=== PATIENT | female | born 1985 | race Caucasian/White ===

== ENCOUNTER 2018-05-31 13:37 | Emergency (ER) | payer SELFPAY ==
--- NOTE | 2018-05-31 14:05 | ER Document Report ---
ED Medical Screen (RME) - General Chief Complaint: Chest Pain Stated Complaint: LEFT SHOULDER PAIN Time Seen by Provider: 05/31/18 14:02 Mode of Arrival: Medic Information source: Patient TRAVEL OUTSIDE OF THE [place] IN LAST 30 DAYS: No - HPI Patient complains to provider of: CP; L shoulder pain Onset: Other - pt. c/o CP and L shoulder pain for the past 3 days. Worse today. Given ASA by EMS - Related Data Allergies/Adverse Reactions: doxylamine succinate [From [facility]] Allergy (Severe, Verified 10/17/13 16:35) Difficulty breathing Past Medical History - Social History Family history: Reviewed & Not Pertinent Psychiatric Medical History: Reports: Hx Attention Deficit Hyperactivity Disorder, Hx Bipolar Disorder, Hx Depression Past Surgical History: Reports: Hx Abdominal Surgery - laparoscopy, Hx Orthopedic Surgery - KNEE X 4 - HAND X1 - Immunizations Immunizations up to date: No Hx Diphtheria, Pertussis, Tetanus Vaccination: No Physical Exam - Vital signs Vitals: Temp Pulse Resp BP Pulse Ox 97.9 F 63 16 129/68 H 100 05/31/18 13:44 05/31/18 13:44 05/31/18 13:44 05/31/18 13:44 05/31/18 13:44 Course - Vital Signs Vital signs: Temp Pulse Resp BP Pulse Ox 97.9 F 63 16 129/68 H 100 05/31/18 13:44 05/31/18 13:44 05/31/18 13:44 05/31/18 13:44 05/31/18 13:44
[2018-05-31 14:42] LABS: ABSOLUTE EOSINOPHILS # (AUTO) 0.1 10^3/uL (0.0-0.6); ABSOLUTE LYMPHOCYTES (AUTO) 2.4 10^3/uL (0.5-4.7); ABSOLUTE MONOCYTES (AUTO) 0.6 10^3/uL (0.1-1.4); ABSOLUTE NEUT (AUTO) 5.1 10^3/uL (1.7-8.2); BASOPHILS % (AUTO) 0.5 % (0-2); EOSINOPHILS % (AUTO) 0.7 % (0-6); HEMATOCRIT 37.6 % (36.0-47.0); HEMOGLOBIN 12.9 g/dL (12.0-15.5); MEAN CORPUSCULAR HEMOGLOBIN 30.7 pg (27.0-33.4); MEAN CORPUSCULAR HGB CONC 34.4 g/dL (32.0-36.0); MEAN CORPUSCULAR VOLUME 89 fl (80-97); MONOCYTES % (AUTO) 7.3 % (3-13); PLATELET COUNT 258 10^3/uL (150-450); RED BLOOD COUNT 4.21 10^6/uL (3.72-5.28); RED CELL DISTRIBUTION WIDTH 14.7 % (11.5-14.0); SEGMENTED NEUTROPHILS % (AUTO) 62.5 % (42-78); TOTAL CELLS COUNTED % (AUTO) 100 %; WHITE BLOOD COUNT 8.1 10^3/uL (4.0-10.5)
[2018-05-31 14:50] LABS: ALANINE AMINOTRANSFERASE 16 U/L (9-52); ALBUMIN 4.1 g/dL (3.5-5.0); ALKALINE PHOSPHATASE 74 U/L (38-126); ANION GAP 9 (5-19); ASPARTATE AMINO TRANSFERASE 30 U/L (14-36); BILIRUBIN,DIRECT 0.3 mg/dL (0.0-0.4); BILIRUBIN,TOTAL 0.4 mg/dL (0.2-1.3); BLOOD UREA NITROGEN 16 mg/dL (7-20); CALCIUM 9.2 mg/dL (8.4-10.2); CARBON DIOXIDE 28 mmol/L (22-30); CHLORIDE 101 mmol/L (98-107); CREATINE KINASE 166 U/L (30-135); GLUCOSE 89 mg/dL (75-110); POTASSIUM 4.3 mmol/L (3.6-5.0); SODIUM 138.4 mmol/L (137-145); TOTAL PROTEIN 6.8 g/dL (6.3-8.2)
[2018-05-31 15:00] LABS: CREATINE KINASE MB 0.88 ng/mL (<4.55)
[2018-05-31 15:02] LABS: TROPONIN I < 0.012 ng/mL
[2018-05-31] MEDS ORDERED: LIDOCAINE 5% (700 MG) TRANSDERMAL ADH..PATCH TP ONE (15:34)
[2018-05-31] MEDS ORDERED: KETOROLAC TROMETHAMINE INJ/PF 30 MG/1 ML SDV IV ONE (15:34)
[2018-05-31] MEDS ORDERED: TRAMADOL HCL 50 MG TABLET PO ONE (15:41)
--- NOTE | 2018-05-31 15:51 | ER Document Report ---
ED General - General Chief Complaint: Chest Pain Stated Complaint: LEFT SHOULDER PAIN Time Seen by Provider: 05/31/18 14:02 Mode of Arrival: Medic TRAVEL OUTSIDE OF THE [place] IN LAST 30 DAYS: No - HPI Patient complains to provider of: Left shoulder chest wall pain Notes: Patient presents today for 3-day history of left shoulder and chest wall pain. Patient denies any trauma. Patient states pain is ongoing and no relief with Tylenol or Motrin at home. Patient denies any injuries patient denies any new physical activity other than being left-handed and using her left arm to take care of her toddler at home. Denies any fever chills nausea vomiting diarrhea. Patient otherwise looks to be no obvious distress upon my evaluation. - Related Data Allergies/Adverse Reactions: doxylamine succinate [From [employer]] Allergy (Severe, Verified 05/31/18 14:07) Difficulty breathing Past Medical History - General Information source: Patient - Social History Smoking Status: Never Smoker Chew tobacco use (# tins/day): No Frequency of alcohol use: Occasional Drug Abuse: None Family History: Reviewed & Not Pertinent, DM Patient has suicidal ideation: No Patient has homicidal ideation: No Renal/ Medical History: Denies: Hx Peritoneal Dialysis Psychiatric Medical History: Reports: Hx Attention Deficit Hyperactivity Disorder, Hx Bipolar Disorder, Hx Depression Past Surgical History: Reports: Hx Abdominal Surgery - laparoscopy, Hx Section, Hx Cholecystectomy, Hx Orthopedic Surgery - KNEE X 4 - HAND X1 - Immunizations Immunizations up to date: No Hx Diphtheria, Pertussis, Tetanus Vaccination: No Review of Systems - Review of Systems Constitutional: No symptoms reported EENT: No symptoms reported Cardiovascular: Chest pain Respiratory: No symptoms reported Gastrointestinal: No symptoms reported Genitourinary: No symptoms reported Female Genitourinary: No symptoms reported Musculoskeletal: Other - Left shoulder Skin: No symptoms reported Hematologic/Lymphatic: No symptoms reported Neurological/Psychological: No symptoms reported -: Yes All other systems reviewed and negative Physical Exam - Vital signs Vitals: Temp Pulse Resp BP Pulse Ox 97.9 F 63 16 129/68 H 100 05/31/18 13:44 05/31/18 13:44 05/31/18 13:44 05/31/18 13:44 05/31/18 13:44 Interpretation: Normal - General General appearance: Appears well, Alert - HEENT Head: Normocephalic, Atraumatic Eyes: Normal Pupils: PERRL - Respiratory Respiratory status: No respiratory distress Chest status: Tender - Tenderness to palpation of the center of the chest reproduces patient's pain along with tenderness to palpation of the coracoid process the insertion point of the pectoralis muscles Breath sounds: Normal Chest palpation: Normal - Cardiovascular Rhythm: Regular Heart sounds: Normal auscultation Murmur: No - Abdominal Inspection: Normal Distension: No distension Bowel sounds: Normal Tenderness: Nontender Organomegaly: No organomegaly - Back Back: Normal, Nontender - Extremities General upper extremity: Normal inspection, Nontender, Normal color, Normal ROM , Normal temperature General lower extremity: Normal inspection, Tender, Normal color, Normal temperature, Normal weight bearing, Other - Patient has decreased range of motion of left shoulder unable to lift her arm above 90 degrees without pain. Patient does have tenderness to palpation of the supraspinatus muscle examination is consistent with a supraspinatus sprain or strain. No: Normal ROM , Cesilia's sign - Neurological Neuro grossly intact: Yes Cognition: Normal Orientation: AAOx4 [place] Coma Scale Eye Opening: Spontaneous Gregorio Coma Scale Verbal: Oriented Gregorio Coma Scale Motor: Obeys Commands Gregorio Coma Scale Total: 15 Speech: Normal Motor strength normal: LUE, RUE, LLE, RLE Sensory: Normal - Psychological Associated symptoms: Normal affect, Normal mood - Skin Skin Temperature: Warm Skin Moisture: Dry Skin Color: Normal Course - Re-evaluation Re-evalutation: 05/31/18 22:50 The patient has atypical chest pain as the patient's chest pain is not suggestive of pulmonary embolus, cardiac ischemia, aortic dissection, or other serious etiology. Given the extremely low risk of these diagnoses further testing and evaluation for these possibilities does not appear to be indicated at this time. The patient has been instructed to return if the symptoms worsen or change in any way. Examination consistent with pectoralis and supraspinatus strain. Patient was given Ultram for her pain recommended Tylenol Motrin therapy as well. Patient states understanding will be discharged home. - Vital Signs Vital signs: Temp Pulse Resp BP Pulse Ox 97.6 F 65 18 116/72 100 05/31/18 16:26 05/31/18 16:26 05/31/18 16:26 05/31/18 16:26 05/31/18 16:26 - Laboratory Result Diagrams: 05/31/18 14:14 05/31/18 14:14 Laboratory results interpreted by me: 05/31/18 05/31/18 14:14 14:14 RDW 14.7 H Creatine Kinase 166 H Discharge - Discharge Clinical Impression: Pectoralis muscle strain Qualifiers: Encounter type: initial encounter Qualified Code(s): S29.011A - Strain of muscle and tendon of front wall of thorax, initial encounter Strain of supraspinatus muscle Qualifiers: Encounter type: initial encounter Laterality: left Qualified Code(s): S46.812A - Strain of other muscles, fascia and tendons at shoulder and upper arm level, left arm, initial encounter Condition: Good Disposition: HOME, SELF-CARE Instructions: Chest Wall Pain ([facility]), Muscle Strain ([facility]), Oral Narcotic Medication ([facility]) Additional Instructions: Your x-rays were read by the radiologist as negative for any signs of acute fracture. Your laboratory studies today EKG x-rays do not show any signs of acute fracture. Your physical examination is consistent with supraspinatus strain pictorial muscle strain. I highly recommend she continue to take Tylenol Motrin for pain control. sHe may place ice and heat on the areas for pain control. May take the Ultram for severe pain. Return to the ER symptoms worsen this can take up to 2 weeks to totally heal. Prescriptions: Ibuprofen [Motrin 600 mg Tablet] 600 mg PO Q8HP PRN #21 tablet PRN Reason: Tramadol HCl [Ultram 50 mg Tablet] 50 mg PO ASDIR PRN #15 tablet PRN Reason: Forms: Return to Work
--- NOTE | 2018-05-31 16:05 | RADIOLOGY REPORT (SQ) ---
EXAM DESCRIPTION: SHOULDER LEFT 2 OR MORE VIEWS COMPLETED DATE/TIME: 05/31/2018 2:26 pm REASON FOR STUDY: CP COMPARISON: None. NUMBER OF VIEWS: Three views. TECHNIQUE: Internal rotation, external rotation, and Y view images acquired of the left shoulder. LIMITATIONS: None. FINDINGS: MINERALIZATION: Normal. BONES: No acute fracture or dislocation. No worrisome bone lesions. JOINTS: No dislocation. VISUALIZED LUNGS AND RIBS: No pneumothorax. No rib fracture. SOFT TISSUES: No radiopaque foreign body. OTHER: No other significant finding. IMPRESSION: NO RADIOGRAPHIC EVIDENCE OF ACUTE INJURY. TECHNICAL DOCUMENTATION: JOB ID: [id number] [place]-72 2010 [employer]- All Rights Reserved Reading location - IP/workstation name: [employer]
--- NOTE | 2018-05-31 16:06 | RADIOLOGY REPORT (SQ) ---
EXAM DESCRIPTION: CHEST 2 VIEWS COMPLETED DATE/TIME: 05/31/2018 2:26 pm REASON FOR STUDY: CP COMPARISON: 12/05/2010 TECHNIQUE: Frontal and lateral radiographic views of the chest acquired. NUMBER OF VIEWS: Two view. LIMITATIONS: None. FINDINGS: LUNGS AND PLEURA: No pneumothorax. No consolidation or pleural effusion. MEDIASTINUM AND HILAR STRUCTURES: Stable. HEART AND VASCULAR STRUCTURES: Stable. BONES: No acute findings. HARDWARE: None in the chest. OTHER: No other significant finding. IMPRESSION: NO ACUTE FINDINGS. TECHNICAL DOCUMENTATION: JOB ID: [id number] [place]-72 2010 [employer]- All Rights Reserved Reading location - IP/workstation name: [email or web address]
[2018-05-31 16:31] VITALS: BP 116/72
--- NOTE | 2018-05-31 22:02 | EKG REPORT ---
SEVERITY:- ABNORMAL ECG - SINUS RHYTHM MULTIPLE ATRIAL PREMATURE COMPLEXES : Confirmed by: Olesya Hollingsworth MD 31-May-2018 22:01:17
== END 2018-05-31 16:31 | disposition home or self-care (01) ==
LOC: ER 13:37
DX: S29.011A Strain of muscle and tendon of front wall of thorax, initial encounter (principal); S46.812A Strain of other muscles, fascia and tendons at shoulder and upper arm level, left arm, initial encounter; R07.89 Other chest pain; M25.512 Pain in left shoulder; X58.XXXA Exposure to other specified factors, initial encounter; Z88.8 Allergy status to other drugs, medicaments and biological substances
CPT/HCPCS: 93005; 99285; 96374; 36415; 82553; 82550; 83690; 84703; 85025; 80053; 84484; 71046; 73030; 93010; J1885

== ENCOUNTER 2018-07-10 08:52 | Emergency (ER) | payer SELFPAY ==
[2018-07-10] MEDS ORDERED: KETOROLAC TROMETHAMINE 60 MG/2 ML SDV IM ONE (09:42)
[2018-07-10] MEDS ORDERED: METHYLPREDNISOLONE ACETATE INJ 80 MG/1 ML VIAL IM ONE (09:42)
--- NOTE | 2018-07-10 09:43 | ER Document Report ---
ED Medical Screen (RME) - General Chief Complaint: Cough Stated Complaint: COUGHING UP BLOOD, LOST VOICE Time Seen by Provider: 07/10/18 09:41 Notes: 33 years old female presents today with 3-day history of sore throat and swelling of the upper part of the neck as well as difficulty in speaking due to pain. Feverish, no body aches and pain. No nausea vomiting. No other constitutional symptoms. On examination bilateral tonsillar enlargement with oropharynx being erythematous. Bilateral upper anterior large cervical lymphadenopathy. TRAVEL OUTSIDE OF THE [place] IN LAST 30 DAYS: No - Related Data Allergies/Adverse Reactions: doxylamine succinate [From [facility]] Allergy (Severe, Verified 05/31/18 14:07) Difficulty breathing Past Medical History - Social History Family history: Reviewed & Not Pertinent Renal/ Medical History: Denies: Hx Peritoneal Dialysis Psychiatric Medical History: Reports: Hx Attention Deficit Hyperactivity Disorder, Hx Bipolar Disorder, Hx Depression Past Surgical History: Reports: Hx Abdominal Surgery - laparoscopy, Hx Section, Hx Cholecystectomy, Hx Orthopedic Surgery - KNEE X 4 - HAND X1 - Immunizations Immunizations up to date: No Hx Diphtheria, Pertussis, Tetanus Vaccination: No Physical Exam - Vital signs Vitals: Temp Pulse Resp BP Pulse Ox 98.5 F 92 18 120/61 97 07/10/18 09:05 07/10/18 09:05 07/10/18 09:05 07/10/18 09:05 07/10/18 09:05 Course - Vital Signs Vital signs: Temp Pulse Resp BP Pulse Ox 98.5 F 92 18 120/61 97 07/10/18 09:05 07/10/18 09:05 07/10/18 09:05 07/10/18 09:05 07/10/18 09:05
[2018-07-10 10:34] LABS: ABSOLUTE BASOPHILS # (AUTO) 0.1 10^3/uL (0.0-0.2); ABSOLUTE LYMPHOCYTES (AUTO) 1.2 10^3/uL (0.5-4.7); ABSOLUTE NEUT (AUTO) 12.8 10^3/uL (1.7-8.2); BASOPHILS % (AUTO) 0.4 % (0-2); EOSINOPHILS % (AUTO) 0.3 % (0-6); HEMATOCRIT 39.3 % (36.0-47.0); HEMOGLOBIN 12.9 g/dL (12.0-15.5); LYMPHOCYTES % (AUTO) 7.7 % (13-45); MEAN CORPUSCULAR HEMOGLOBIN 29.3 pg (27.0-33.4); MEAN CORPUSCULAR HGB CONC 32.8 g/dL (32.0-36.0); MEAN CORPUSCULAR VOLUME 89 fl (80-97); MONOCYTES % (AUTO) 6.7 % (3-13); PLATELET COUNT 210 10^3/uL (150-450); RED CELL DISTRIBUTION WIDTH 14.3 % (11.5-14.0); SEGMENTED NEUTROPHILS % (AUTO) 84.9 % (42-78); TOTAL CELLS COUNTED % (AUTO) 100 %; WHITE BLOOD COUNT 15.1 10^3/uL (4.0-10.5)
[2018-07-10 11:00] LABS: ALANINE AMINOTRANSFERASE 16 U/L (9-52); ALBUMIN 3.9 g/dL (3.5-5.0); ALKALINE PHOSPHATASE 75 U/L (38-126); ANION GAP 14 (5-19); ASPARTATE AMINO TRANSFERASE 22 U/L (14-36); BILIRUBIN,DIRECT 0.2 mg/dL (0.0-0.4); BILIRUBIN,TOTAL 0.3 mg/dL (0.2-1.3); BLOOD UREA NITROGEN 9 mg/dL (7-20); CALCIUM 9.2 mg/dL (8.4-10.2); CARBON DIOXIDE 21 mmol/L (22-30); CHLORIDE 105 mmol/L (98-107); GLUCOSE 93 mg/dL (75-110); POTASSIUM 4.4 mmol/L (3.6-5.0); SODIUM 139.6 mmol/L (137-145); TOTAL PROTEIN 6.9 g/dL (6.3-8.2)
[2018-07-10] MEDS ORDERED: NORMAL SALINE 1000 ML 1,000 ML IV ONE (12:26)
--- NOTE | 2018-07-10 12:31 | ER Document Report ---
ED General - General Mode of Arrival: Ambulatory Information source: Patient TRAVEL OUTSIDE OF THE [place] IN LAST 30 DAYS: No <DIANA PERSAUD - Last Filed: 07/10/18 13:00> <MONSE SANCHEZ - Last Filed: 07/10/18 14:31> - General Chief Complaint: Cough Stated Complaint: COUGHING UP BLOOD, LOST VOICE Time Seen by Provider: 07/10/18 09:41 Notes: Patient is a 33 year old female with ADHD, bipolar disorder presents to the emergency department complaining of multiple symptoms including sore throat, headache, dizziness and body aches onset 3 days ago. Patient states she feels like her throat is swelling and she is having difficulty speaking due to the pain. Patient denies any cough, nausea or vomiting. (DIANA PERSAUD) - Related Data Allergies/Adverse Reactions: doxylamine succinate [From [employer]] Allergy (Severe, Verified 05/31/18 14:07) Difficulty breathing Past Medical History - General Information source: Patient - Social History Smoking Status: Never Smoker Chew tobacco use (# tins/day): No Frequency of alcohol use: None Drug Abuse: None Family History: Reviewed & Not Pertinent, DM Patient has suicidal ideation: No Patient has homicidal ideation: No Psychiatric Medical History: Reports: Hx Attention Deficit Hyperactivity Disorder, Hx Bipolar Disorder, Hx Depression Past Surgical History: Reports: Hx Abdominal Surgery - laparoscopy, Hx Section, Hx Cholecystectomy, Hx Orthopedic Surgery - KNEE X 4 - HAND X1 - Immunizations Immunizations up to date: No Hx Diphtheria, Pertussis, Tetanus Vaccination: No <DIANA PERSAUD - Last Filed: 07/10/18 13:00> Review of Systems - Review of Systems Constitutional: See HPI, Diaphoresis EENT: See HPI, Throat pain, Throat swelling Cardiovascular: See HPI, Dizziness Respiratory: No symptoms reported Gastrointestinal: No symptoms reported Genitourinary: No symptoms reported Musculoskeletal: No symptoms reported Skin: No symptoms reported Hematologic/Lymphatic: No symptoms reported Neurological/Psychological: See HPI, Headaches -: Yes All other systems reviewed and negative <DIANA PERSAUD - Last Filed: 07/10/18 13:00> Physical Exam <DIANA PERSAUD - Last Filed: 07/10/18 13:00> <MONSE SANCHEZ - Last Filed: 07/10/18 14:31> - Vital signs Vitals: Temp Pulse Resp BP Pulse Ox 98.5 F 92 18 120/61 97 07/10/18 09:05 07/10/18 09:05 07/10/18 09:05 07/10/18 09:05 07/10/18 09:05 - Notes Notes: GENERAL: Alert, interacts well. No acute distress. HEAD: Normocephalic, atraumatic. EYES: Pupils equal, round, and reactive to light. Extraocular movements intact. ENT: Oral mucosa moist, tongue midline. Posterior soft palate is swollen. Posterior oropharynx is swollen, bulging and erythematous with exudates. Unable to visualize tonsils with and without tongue depressor. Tongue is coated. No trismus. NECK: Full range of motion. Supple. Trachea midline.Anterior cervical lymphadenopathy bilaterally. LUNGS: Clear to auscultation bilaterally, no wheezes, rales, or rhonchi. No respiratory distress. HEART: Regular rate and rhythm. No murmurs, gallops, or rubs. ABDOMEN: Soft, non-tender. Non-distended. Bowel sounds present in all 4 quadrants. EXTREMITIES: Moves all 4 extremities spontaneously. NEUROLOGICAL: Alert and oriented x3. Normal speech. PSYCH: Normal affect, normal mood. SKIN: Warm, dry, normal turgor. No rashes or lesions noted. (DIANA PERSAUD) Course - Laboratory Result Diagrams: 07/10/18 10:15 07/10/18 10:15 <DIANA PERSAUD - Last Filed: 07/10/18 13:00> - Laboratory Result Diagrams: 07/10/18 10:15 07/10/18 10:15 - Diagnostic Test Radiology reviewed: Image reviewed, Reports reviewed - CT scan of the soft tissue neck with contrast does not show abscess formation. There is peritonsillar soft tissue swelling noted. <MONSE SANCHEZ - Last Filed: 07/10/18 14:31> - Vital Signs Vital signs: Temp Pulse Resp BP Pulse Ox 98.5 F 92 16 120/61 97 07/10/18 09:05 07/10/18 09:05 07/10/18 09:36 07/10/18 09:05 07/10/18 09:05 - Laboratory Laboratory results interpreted by me: 07/10/18 07/10/18 10:15 10:15 WBC 15.1 H RDW 14.3 H Seg Neutrophils % 84.9 H Lymphocytes % 7.7 L Absolute Neutrophils 12.8 H Carbon Dioxide 21 L Discharge <DIANA PERSAUD - Last Filed: 07/10/18 13:00> <MONSE SANCHEZ - Last Filed: 07/10/18 14:31> - Discharge Clinical Impression: Peritonsillar cellulitis, Strep sore throat Condition: Stable Disposition: HOME, SELF-CARE Additional Instructions: Roxane-Tonsillar Cellulits: You have roxane-tonsillar cellulitis. The CT scan does not show an abscess at this point. It may be a couple of days before we can sure it is just local tissue infection called cellulitis, and not an abscess developing. An antibiotic may prevent spread of the infection and a steroid medication may reduce the swelling. If you develop fever, chills, worsening pain, or increasing swelling in the area, call the doctor or return immediately. The major risk of a roxane- tonsillar abscess is that it may swell so much that it impinges on your airway and can lead to dangerous obstruction of your breathing. If that seems to be developing, you should seek immediate emergency re-evaluation and care. Strep Throat: Your sore throat is due to the streptococcus germ (strep throat). Strep throat usually makes you feel quite ill with fever and aches, headache, swollen sore throat, and tender bumps under the angles of the jaw. Strep throat requires antibiotic treatment. Although the sore throat may go away by itself, complications such as rheumatic fever, kidney disease, or throat abscess can occur. We usually prescribe antibiotics by mouth. Be sure to take the medicine until it's gone. If you stop early, the strep may come back. If you are vomiting, are severely ill, or can't remember to take pills, we can give you an antibiotic shot. Take acetaminophen or ibuprofen for pain and fever. Sip frequent clear liquids, or use popsicles or ice chips. Anesthetic sprays or lozenges may help. Make sure the air in the room is not too dry. Avoid using decongestants or antihistamines. Call the doctor if there is no improvement in three days, or if you have difficulty breathing, increasing throat pain, high fever, rash, or frequent vomiting. Take the medications as prescribed. Drink plenty of cool clear liquids. Get plenty of rest. Try to limit talking as much as possible. Return to the emergency room for recheck if not improving. RETURN TO THE EMERGENCY ROOM IF ANY NEW OR WORSENING SYMPTOMS. Prescriptions: Cephalexin Monohydrate [Keflex 500 mg Capsule] 500 mg PO TID #30 capsule Prednisone [Deltasone 10 mg Tablet] 10 mg PO ASDIR PRN #21 tablet PRN Reason: Forms: Return to Work Scribe Attestation: 07/10/18 14:19 I personally performed the services described in the documentation, reviewed and edited the documentation which was dictated to the scribe in my presence, and it accurately records my words and actions. (MONSE SANCHEZ) Scribe Documentation - Scribe Written by Abdiel:: Abdiel Cook, 07/10/2018 12:31 acting as scribe for :: Ruben <DIANA PERSAUD - Last Filed: 07/10/18 13:00>
[2018-07-10] MEDS ORDERED: CEFTRIAXONE 1 GM/D5W RTU 1 GM/50 ML RTUPB IV ONE (13:45)
--- NOTE | 2018-07-10 13:45 | RADIOLOGY REPORT (SQ) ---
EXAM DESCRIPTION: CT SOFT TISSUE NECK WITH COMPLETED DATE/TIME: 07/10/2018 1:12 pm REASON FOR STUDY: Peritonsillar abscess COMPARISON: None. TECHNIQUE: Post IV contrasted scanning from skull base through lung apices with review of bone, soft tissue and lung windows. Reconstructed coronal and sagittal MPR images reviewed. All images stored on PACS. All CT scanners at this facility use dose modulation, iterative reconstruction, and/or weight based d osing when appropriate to reduce radiation dose to as low as reasonably achievable (ALARA). [facility]: Dose Right [facility]: CareDose [facility]: Dose Right [facility]: Teradose 4D [facility]: [place] CONTRAST TYPE AND DOSE: contrast/concentration: Isovue 350.00 mg/ml; Total Contrast Delivered: 70.1 ml; Total Saline Delivered: 20.0 ml RENAL FUNCTION: GFR > 60. RADIATION DOSE: . LIMITATIONS: None. FINDINGS: SKULL BASE: Intact. MAJOR SALIVARY GLANDS: No solid or cystic masses. No inflammatory changes. LYMPHADENOPATHY: No adenopathy. MUCOSAL MASSES OR ASYMMETRY: Fullness in the para tonsillar soft tissues and posterior nasopharynx. Small gas bubble to right of midline nasopharynx of unlikely clinical significance. No associated in flammation. Patent airway. LARYNX/CORDS: No abnormal findings. VASCULAR STRUCTURES: The major vessels are patent. LUNG APICES: Clear. BONES: Intact. THYROID: Normal size. No masses. PARANASAL SINUSES: Clear. OTHER: No other significant finding. IMPRESSION: No abscess identified. TECHNICAL DOCUMENTATION: JOB ID: [id number] Quality ID # [id number]: Final reports with documentation of one or more dose reduction techniques (e.g., Au tomated exposure control, adjustment of the mA and/or kV according to patient size, use of iterative reconstruction technique) 2010 [employer]- All Rights Reserved Reading location - IP/workstation name: [email or web address]
[2018-07-10 14:42] VITALS: BP 108/57
== END 2018-07-10 15:00 | disposition home or self-care (01) ==
LOC: ER 08:52
DX: J02.0 Streptococcal pharyngitis (principal); R51 Headache; R42 Dizziness and giddiness; Z88.8 Allergy status to other drugs, medicaments and biological substances
CPT/HCPCS: 99284; 96372; 96361; 96365; 36415; 87880; 85025; 86308; 80053; 70491; J1885; J1040; J7030; J0696

== ENCOUNTER 2018-08-06 07:53 | Emergency (ER) | payer SELFPAY ==
[2018-08-06 07:58] VITALS: BP 124/72
[2018-08-06] MEDS ORDERED: DEXAMETHASONE SOD PHOS INJ 10 MG/1 ML VIAL IM ONE (08:22)
--- NOTE | 2018-08-06 08:26 | ER Document Report ---
HPI - HPI Time Seen by Provider: 08/06/18 08:03 Pain Level: 2 Notes: Patient is a 33-year-old female who presents to the emergency department complaining of sore throat times 3 days. Patient states that she was diagnosed with strep and tonsillitis about a month ago. Patient states that she is still able to eat and drink without any difficulties. She has not had any trouble swallowing aside from discomfort. She is urinating normally. She has no other concerns or complaints aside from associated nasal congestion and discharge. Denies any headache, fever, neck pain, changes in vision/speech/mentation/hearing, chest pain, palpitations, syncope, cough, shortness of breath, wheeze, dyspnea, abdominal pain, nausea/vomiting/diarrhea, urinary retention, dysuria, hematuria, or rash. - ROS Systems Reviewed and Negative: Yes All other systems reviewed and negative - CONSTITUTIONAL Constitutional: DENIES: Fever, Chills - EENT EENT: REPORTS: Sore Throat. DENIES: Ear Pain, Eye problems - NEURO Neurology: DENIES: Headache, Weakness, Vision blurred, Dizzinesss / Vertigo - CARDIOVASCULAR Cardiovascular: DENIES: Chest pain - RESPIRATORY Respiratory: REPORTS: Coughing - yellow. DENIES: Trouble Breathing - GASTROINTESTINAL Gastrointestinal: DENIES: Abdominal Pain, Black / Bloody Stools - URINARY Urinary: DENIES: Dysuria, Urgency, Frequency - REPRODUCTIVE Reproductive: DENIES: : - MUSCULOSKELETAL Musculoskeletal: DENIES: Extremity pain Past Medical History - Social History Smoking Status: Former Smoker Chew tobacco use (# tins/day): No Frequency of alcohol use: None Drug Abuse: None Family History: Reviewed & Not Pertinent, DM Patient has suicidal ideation: No Patient has homicidal ideation: No Renal/ Medical History: Denies: Hx Peritoneal Dialysis Psychiatric Medical History: Reports: Hx Attention Deficit Hyperactivity Disorder, Hx Bipolar Disorder, Hx Depression Past Surgical History: Reports: Hx Abdominal Surgery - laparoscopy, Hx Section, Hx Cholecystectomy, Hx Orthopedic Surgery - KNEE X 4 - HAND X1 - Immunizations Immunizations up to date: No Hx Diphtheria, Pertussis, Tetanus Vaccination: No Vertical Provider Document - CONSTITUTIONAL Agree With Documented VS: Yes Notes: PHYSICAL EXAMINATION: GENERAL: Well-appearing, well-nourished and in no acute distress. A&Ox4. Answers questions appropriately. Moves comfortably w/o notable distress HEAD: Atraumatic, normocephalic. EYES: Pupils equal round and reactive to light, extraocular movements intact, sclera anicteric, conjunctiva are normal. ENT: EAC clear b/l. TM's intact b/l without erythema, fluid, or perforation. Nares patent and with clear discharge. oropharynx mild erythema without exudates. 1-2+ tonsilar hypertrophy with mild erythema no exudate. No palatine shift. Uvula midline. No tongue protrusion. No drooling, hoarseness, or airway compromise. Moist mucous membranes. No sinus tenderness. NECK: Normal range of motion, supple with ant. cerv chain lymphadenopathy. No rigidity/meningismus. LUNGS: Breath sounds clear to auscultation bilaterally and equal. No wheezes rales or rhonchi. No retractions HEART: Regular rate and rhythm without murmurs, rubs, gallops. ABDOMEN: Soft, nontender, nondistended abdomen. No guarding, no rebound. No masses appreciated. Normal bowel sounds present. No CVA tenderness bilaterally. No hepatosplenomegaly. NEUROLOGICAL: Normal speech, normal gait. Normal sensory, motor exams PSYCH: Normal mood, normal affect. SKIN: Warm, Dry, normal turgor, no rashes or lesions noted. - INFECTION CONTROL TRAVEL OUTSIDE OF THE [place] IN LAST 30 DAYS: No Course - Re-evaluation Re-evalutation: 08/06/18 08:35 Patient is an afebrile, well-hydrated, 33-year-old female who presents to the ED with acute strep pharyngitis. Vitals are currently acceptable without any significant tachycardia, tachypnea, or hypoxia. PE is otherwise unremarkable. Decadron was given IM today. Rapid strep was positive. No further labs or imaging warranted at this time. Patient is nontoxic-appearing and is able to tolerate p.o. without difficulty. Low suspicion for any meningitis, sepsis, peritonsillar/pharyngeal abscess, respiratory compromise, Damion's, or other emergent systemic condition at this time. Patient is aware this condition can change from initial presentation and she needs to monitor symptoms closely. I will send her home with a prescription for penicillin. Conservative measures otherwise for symptoms. Recheck with your PCM in 2-3 days. Return to the ED with any worsening/concerning symptoms otherwise as reviewed in discharge. Patient is in agreement. - Vital Signs Vital signs: Temp Pulse Resp BP Pulse Ox 97.6 F 67 14 124/72 99 08/06/18 07:57 08/06/18 07:57 08/06/18 07:57 08/06/18 07:57 08/06/18 07:57 Discharge - Discharge Clinical Impression: Acute streptococcal pharyngitis Condition: Stable Disposition: HOME, SELF-CARE Instructions: Penicillin V K ([facility]), Strep Throat ([facility]) Additional Instructions: Maintain adequate fluid intake Take meds as directed Salt water gargles, throat sprays, mouthwash rinse, peroxide gargles tylenol/ibuprofen as needed New toothbrush tomorrow evening over the counter cold medication as needed for symptoms F/u: with your PCM in 3-5 days for a recheck Consider consult with ENT for ongoing/worsening symptoms Return to the ED with any fever, worsening pain, chest pain, neck pain/stiffness, shortness of breath, cough, drooling, trouble swallowing/breathing, abdominal pain, n/v/d, rash, or worsening/concerning symptoms otherwise. Prescriptions: Penicillin V Potassium [Penicillin Vk 500 mg Tablet] 500 mg PO TID #30 tablet Referrals: SIENA MELARA DO [ASSOCIATE] - Follow up as needed
== END 2018-08-06 08:57 | disposition home or self-care (01) ==
LOC: ER 07:53
DX: J02.0 Streptococcal pharyngitis (principal); R09.81 Nasal congestion; J34.89 Other specified disorders of nose and nasal sinuses; Z87.891 Personal history of nicotine dependence
CPT/HCPCS: 99283; 96372; 87880; J1100

== ENCOUNTER 2018-08-27 14:50 | Emergency (ER) | payer SELFPAY ==
--- NOTE | 2018-08-27 15:32 | ER Document Report ---
ED Medical Screen (RME) - General Chief Complaint: Vaginal Pain Stated Complaint: VAGINAL ITCHING,DISCHARGE Time Seen by Provider: 08/27/18 15:25 Mode of Arrival: Ambulatory Information source: Patient Notes: 33-year-old female presents the emergency department with complaints of suprapubic abdominal pain, dysuria, increased urgency, increased frequency, abnormal vaginal discharge, vaginal itching, vaginal pain. Patient states that her last menstrual period was a week ago. She is climbed to have taken, "everything [id number]" for her symptoms without relief. She denies any fever, chills, nausea, vomiting, diarrhea, constipation. I have greeted and performed a rapid initial assessment of this patient. A comprehensive ED assessment and evaluation of the patient, analysis of test results and completion of the medical decision making process will be conducted by additional ED providers. PHYSICAL EXAMINATION: GENERAL: Well-appearing, well-nourished and in no acute distress. HEAD: Atraumatic, normocephalic. EYES: Pupils equal round extraocular movements intact, conjunctiva are normal. ENT: Nares patent NECK: Normal range of motion LUNGS: No respiratory distress Musculoskeletal: Normal range of motion NEUROLOGICAL: Normal speech, normal gait. PSYCH: Normal mood, normal affect. SKIN: Warm, Dry, normal turgor, no rashes or lesions noted. TRAVEL OUTSIDE OF THE [place] IN LAST 30 DAYS: No - Related Data Allergies/Adverse Reactions: doxylamine succinate [From [employer]] Allergy (Severe, Verified 08/27/18 14:59) Difficulty breathing Past Medical History - Social History Chew tobacco use (# tins/day): No Frequency of alcohol use: Occasional Drug Abuse: None Family history: Reviewed & Not Pertinent Renal/ Medical History: Denies: Hx Peritoneal Dialysis Psychiatric Medical History: Reports: Hx Attention Deficit Hyperactivity Disorder, Hx Bipolar Disorder, Hx Depression Past Surgical History: Reports: Hx Abdominal Surgery - laparoscopy, Hx Section, Hx Cholecystectomy, Hx Orthopedic Surgery - KNEE X 4 - HAND X1 - Immunizations Immunizations up to date: No Hx Diphtheria, Pertussis, Tetanus Vaccination: No Physical Exam - Vital signs Vitals: Temp Pulse Resp BP Pulse Ox 97.6 F 82 20 116/69 99 08/27/18 15:10 08/27/18 15:10 08/27/18 15:10 08/27/18 15:10 08/27/18 15:10 Course - Vital Signs Vital signs: Temp Pulse Resp BP Pulse Ox 97.6 F 82 20 116/69 99 08/27/18 15:10 08/27/18 15:10 08/27/18 15:10 08/27/18 15:10 08/27/18 15:10
[2018-08-27 16:04] LABS: APPEARANCE,URINE SLIGHTLY-CLOUDY; BILIRUBIN,URINE NEGATIVE (NEGATIVE); COLOR,URINE AMBER; GLUCOSE, URINE NEGATIVE (NEGATIVE); KETONES,URINE NEGATIVE (NEGATIVE); LEUKOCYTE ESTERASE,URINE TRACE (NEGATIVE); NITRITE,URINE POSITIVE (NEGATIVE); PROTEIN,URINE NEGATIVE (NEGATIVE); URINE SPECIFIC GRAVITY 1.023
[2018-08-27] MEDS ORDERED: PHENAZOPYRIDINE HCL 100 MG TABLET PO ONE (16:24)
[2018-08-27] MEDS ORDERED: SULFAMETHOXAZOLE/TRIMETHOPRIM 800-160 MG TABLET PO ONE (16:24)
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
[2018-08-27] MEDS ORDERED: HYDROCODONE/ACETAMINOPHEN 5-325 MG TABLET PO ONE (16:25)
[2018-08-27 17:48] LABS: BACTERIA (WET MOUNT) 3+ BACTERIA SEEN; EPITHELIALS (WET MOUNT) 4+ EPITHELIALS SEEN; T.VAGINALIS (WET MOUNT) NO TRICHOMONAS SEEN; WBCS (WET MOUNT) 2+ WBCS SEEN; YEAST (WET MOUNT) NO YEAST SEEN
[2018-08-27] MEDS ORDERED: AZITHROMYCIN 250 MG TABLET PO ONE (18:22)
[2018-08-27] MEDS ORDERED: METRONIDAZOLE 500 MG TABLET PO ONE (18:22)
[2018-08-27] MEDS ORDERED: LIDOCAINE 1% INJ-PF (10 MG/ML) 30 ML SDV IM ONE (18:22)
[2018-08-27] MEDS ORDERED: CEFTRIAXONE INJ 250 MG VIAL IM ONE (18:22)
[2018-08-27 18:59] VITALS: BP 113/57
[2018-08-27 19:13] LABS: CHLAM PCR NOT DETECTED (NOT DETECT); GON PCR NOT DETECTED (NOT DETECT)
== END 2018-08-27 19:04 | disposition home or self-care (01) ==
LOC: ER 14:50
DX: N76.0 Acute vaginitis (principal); B96.89 Other specified bacterial agents as the cause of diseases classified elsewhere; N39.0 Urinary tract infection, site not specified; R31.9 Hematuria, unspecified; F17.200 Nicotine dependence, unspecified, uncomplicated; Z88.8 Allergy status to other drugs, medicaments and biological substances; Z20.2 Contact with and (suspected) exposure to infections with a predominantly sexual mode of transmission
CPT/HCPCS: 99283; 96372; 87210; 81025; 81001; 87491; 87591; J3490 ×2; J0696

== ENCOUNTER 2018-12-18 13:20 | Emergency (ER) | payer MEDICAID ==
[2018-12-18 13:37] VITALS: BP 124/71
== END 2018-12-18 13:58 | disposition left against medical advice (07) ==
LOC: ER 13:20
DX: Z53.21 Procedure and treatment not carried out due to patient leaving prior to being seen by health care provider (principal); R51 Headache; R42 Dizziness and giddiness

== ENCOUNTER 2019-01-05 07:16 | Emergency (ER) | payer MEDICAID ==
[2019-01-05 07:20] VITALS: BP 121/69
[2019-01-05] MEDS ORDERED: DEXAMETHASONE SOD PHOS INJ 10 MG/1 ML VIAL IM ONE (08:38)
--- NOTE | 2019-01-05 08:42 | ER Document Report ---
HPI - HPI Time Seen by Provider: 01/05/19 08:13 Pain Level: 4 Notes: Patient is a 33-year-old female presented to the emergency department chief complaint of sore throat and right ear pain. Patient reports all symptoms started yesterday. She also reports mild cough and congestion. She denies any fevers. Patient reports her and her son have had recurrent strep throat over the last several months. She states that she feels like she has strep throat. - EENT EENT: REPORTS: Sore Throat - REPRODUCTIVE Reproductive: DENIES: : Past Medical History - General Information source: Patient - Social History Smoking Status: Former Smoker Chew tobacco use (# tins/day): No Frequency of alcohol use: None Drug Abuse: None Family History: Reviewed & Not Pertinent, DM Patient has suicidal ideation: No Patient has homicidal ideation: No Renal/ Medical History: Denies: Hx Peritoneal Dialysis Psychiatric Medical History: Reports: Hx Attention Deficit Hyperactivity Disorder, Hx Bipolar Disorder, Hx Depression Past Surgical History: Reports: Hx Abdominal Surgery - laparoscopy, Hx Section, Hx Cholecystectomy, Hx Orthopedic Surgery - KNEE X 4 - HAND X1 - Immunizations Immunizations up to date: No Hx Diphtheria, Pertussis, Tetanus Vaccination: No Vertical Provider Document - CONSTITUTIONAL Notes: PHYSICAL EXAMINATION: GENERAL: Well-appearing, well-nourished and in no acute distress. HEAD: Atraumatic, normocephalic. EYES: Pupils equal round extraocular movements intact, conjunctiva are normal. ENT: Nares patent, oropharynx mildly erythematous without tonsillar swelling or exudates. Right TM erythematous and bulging. Left TM unremarkable. NECK: Bilateral cervical lymphadenopathy. LUNGS: No respiratory distress, lung sounds clear and equal bilaterally. Musculoskeletal: Normal range of motion NEUROLOGICAL: Normal speech, normal gait. PSYCH: Normal mood, normal affect. SKIN: Warm, Dry, normal turgor, no rashes or lesions noted. - INFECTION CONTROL TRAVEL OUTSIDE OF THE [place] IN LAST 30 DAYS: No Course - Re-evaluation Re-evalutation: Patient appears well, nontoxic and vital signs are within normal limits. Rapid strep is negative. Will start patient on Augmentin for otitis media. Throat culture pending. Information was given for ENT as patient reports recurrent strep over the last several months. ED return precautions were discussed and patient verbalized understanding and agreement with plan. - Vital Signs Vital signs: Temp Pulse Resp BP Pulse Ox 98.4 F 87 18 121/69 96 01/05/19 07:19 01/05/19 07:19 01/05/19 07:19 01/05/19 07:19 01/05/19 07:19 Discharge - Discharge Clinical Impression: Sore throat Otitis media Qualifiers: Otitis media type: unspecified Chronicity: acute Qualified Code(s): H66.90 - Otitis media, unspecified, unspecified ear Condition: Stable Disposition: HOME, SELF-CARE Additional Instructions: SORE THROAT: Sore throats may be caused by viruses, bacteria, or fungi. Most are due to a virus, and must get better on their own. Bacterial sore throats, particularly those due to "strep," need treatment with antibiotics. If an antibiotic is prescribed, be sure to take the medication for a full 10 days. Failure to take the antibiotic can result in complications such as rheumatic fever. Sometimes, an injection of antibiotics is given instead of pills or liquid. This single "shot" is equal in effectiveness to the oral medication. To relieve symptoms, take acetaminophen for pain. Sip clear liquids frequently, or eat popsicles or ice chips. Anesthetic sprays or lozenges may help. Make sure the air in the room is not too dry. Avoid using decongestants or antihistamines. Call the doctor if there is no improvement in two days, or if you have difficulty breathing, increasing throat pain, high fever, rash, or frequent vomiting. STEROID MEDICATION: You have been given a medicine of the cortisone/steroid class. This medication is used to control inflammation or allergy. It is usually only given for a short period of time, until the acute process subsides. There are usually no side effects from short-term use of cortisone-like medications. Some persons feel an increased sense of well-being and are not sleepy at bedtime. Long-term use of cortisone medications is best avoided, unless required for a severe condition. If your condition does not remit, or relapses after the course of corticosteroid medication, you should consult your physician. OTITIS MEDIA: You have a middle ear infection (otitis media). This is usually a complication of a cold or sore throat. The middle ear cavity becomes filled with infection. Pressure and stretching of the ear drum cause pain. Antibiotics are required. A 10 day course is usually prescribed. A decongestant may be recommended if you have a "runny nose." You may need anesthetic drops or other pain medication. A follow-up exam may be recommended to make sure the infection has completely cleared. If the ear begins to drain, it means the ear drum has ruptured. This will usually heal spontaneously. However, it means you should keep the ear dry until re-examined by a doctor. Call the physician or return for examination at once if there is severe headache, stiff neck, confusion, increasing fever, or dizziness. You should improve significantly within two days. If you're not better, call the doctor. Augmentin Augmentin is a mixture of amoxicillin and clavulanate. Amoxicillin is a mem luis of the penicillin family. It covers the germs likely to cause ear, bronchial, and urinary infections better than plain penicillin. The addition of clavulanate allows it to cover staph infections of the skin, as well as resistant cases of ear and sinus infections. Your physician has chosen Augmentin for you because of the special nature of your situation. Augmentin is best taken with meals. Nausea after taking the medication is rare, but can occur. Diarrhea can occur, particularly in small children. Vaginal yeast infections, and oral thrush in infants are also common. Contact your physician if these problems occur. Allergy to penicillins is common. If you have had an allergic reaction to any drug of the penicillin family, you should never take any other penicillin. Notify your doctor at once if you develop hives, shortness of breath, swelling, or faintness. FOLLOW-UP CARE: If you have been referred to a physician for follow-up care, call the physician s office for an appointment as you were instructed or within the next two days. If you experience worsening or a significant change in your symptoms, notify the physician immediately or return to the Emergency Department at any time for re-evaluation. Your rapid strep test today was negative. Someone will call you in the next 48 hours if there is any abnormality on the throat culture. Please take antibiotics as directed for your ear. Please continue to take [id number] throat lozenges or throat spray. Tylenol or ibuprofen would be helpful as well for your sore throat pain as well as any fevers he may develop. Follow-up with your primary care physician and consider following up with an ENT since you date that you have been having recurrent strep. Return to the emergency department with worsening symptoms, difficulty swallowing or any other symptoms that are concerning to you. Prescriptions: Amox Tr/Potassium Clavulanate [Augmentin 875-125 mg Tablet] 1 tab PO BID #20 tablet Forms: Return to Work Referrals: SIENA MELARA DO [ASSOCIATE] - Follow up as needed
== END 2019-01-05 08:59 | disposition home or self-care (01) ==
LOC: ER 07:16
DX: J02.9 Acute pharyngitis, unspecified (principal); H66.90 Otitis media, unspecified, unspecified ear; H92.01 Otalgia, right ear; R05 Cough; R09.81 Nasal congestion; Z87.891 Personal history of nicotine dependence
CPT/HCPCS: 99283; 96372; 87070; 87880; 87077; J1100

== ENCOUNTER 2019-02-25 13:48 | Emergency (ER) | payer MEDICAID ==
[2019-02-25 15:26] LABS: ABSOLUTE BASOPHILS # (AUTO) 0.1 10^3/uL (0.0-0.2); ABSOLUTE LYMPHOCYTES (AUTO) 2.4 10^3/uL (0.5-4.7); ABSOLUTE MONOCYTES (AUTO) 0.5 10^3/uL (0.1-1.4); ABSOLUTE NEUT (AUTO) 5.6 10^3/uL (1.7-8.2); BASOPHILS % (AUTO) 0.8 % (0-2); EOSINOPHILS % (AUTO) 0.5 % (0-6); HEMATOCRIT 39.2 % (36.0-47.0); LYMPHOCYTES % (AUTO) 27.5 % (13-45); MEAN CORPUSCULAR HEMOGLOBIN 29.9 pg (27.0-33.4); MEAN CORPUSCULAR HGB CONC 33.2 g/dL (32.0-36.0); MEAN CORPUSCULAR VOLUME 90 fl (80-97); MONOCYTES % (AUTO) 6.1 % (3-13); PLATELET COUNT 243 10^3/uL (150-450); RED BLOOD COUNT 4.35 10^6/uL (3.72-5.28); RED CELL DISTRIBUTION WIDTH 14.4 % (11.5-14.0); SEGMENTED NEUTROPHILS % (AUTO) 65.1 % (42-78); TOTAL CELLS COUNTED % (AUTO) 100 %; WHITE BLOOD COUNT 8.7 10^3/uL (4.0-10.5)
--- NOTE | 2019-02-25 15:29 | ER Document Report ---
ED Medical Screen (RME) - General Chief Complaint: Anxiety Stated Complaint: VAGINAL BLEEDING Time Seen by Provider: 02/25/19 14:58 Mode of Arrival: Ambulatory Information source: Patient Notes: Patient is a 33-year-old female G2, P1 presenting with chief complaint of vaginal bleeding. Patient reports she has 6 weeks 1 day , states bleeding started this morning and was dark brown. Patient reports bleeding has now stopped. She also reports low abdominal cramping and low back pain. She reports mild nausea but denies any vomiting. Exam: Tenderness to palpation lower abdomen, no acute distress noted. I have greeted and performed a rapid initial assessment of this patient. A comprehensive ED assessment and evaluation of the patient, analysis of test results and completion of the medical decision making process will be conducted by additional ED providers. I have specifically instructed the patient or family members with the patient to immediately return to any nursing staff should anything change in the patient's condition or with their chief complaint. This medical record was dictated with voice recognizing software. There may be grammatical, syntax errors that are unintended. TRAVEL OUTSIDE OF THE [place] IN LAST 30 DAYS: No - Related Data Allergies/Adverse Reactions: doxylamine succinate [From [employer]] Allergy (Severe, Verified 02/25/19 13:49) Difficulty breathing Past Medical History - Social History Family history: Reviewed & Not Pertinent Renal/ Medical History: Denies: Hx Peritoneal Dialysis Psychiatric Medical History: Reports: Hx Attention Deficit Hyperactivity Disorder, Hx Bipolar Disorder, Hx Depression Past Surgical History: Reports: Hx Abdominal Surgery - laparoscopy, Hx Section, Hx Cholecystectomy, Hx Orthopedic Surgery - KNEE X 4 - HAND X1 - Immunizations Immunizations up to date: No Hx Diphtheria, Pertussis, Tetanus Vaccination: No Physical Exam - Vital signs Vitals: Temp Pulse Resp BP Pulse Ox 98.0 F 73 24 H 111/64 100 02/25/19 13:57 02/25/19 13:57 02/25/19 13:57 02/25/19 13:57 02/25/19 13:57 Course - Vital Signs Vital signs: Temp Pulse Resp BP Pulse Ox 98.0 F 73 24 H 111/64 100 02/25/19 13:57 02/25/19 13:57 02/25/19 13:57 02/25/19 13:57 02/25/19 13:57 - Laboratory Result Diagrams: 02/25/19 15:10 Laboratory results interpreted by me: 02/25/19 15:10 RDW 14.4 H
[2019-02-25 15:38] LABS: AMORPHOUS SEDIMENT,URINE TRACE /HPF; APPEARANCE,URINE CLOUDY; BILIRUBIN,URINE NEGATIVE (NEGATIVE); GLUCOSE, URINE NEGATIVE (NEGATIVE); KETONES,URINE TRACE mg/dL (NEGATIVE); LEUKOCYTE ESTERASE,URINE NEGATIVE (NEGATIVE); NITRITE,URINE NEGATIVE (NEGATIVE); PROTEIN,URINE NEGATIVE (NEGATIVE); URINE SPECIFIC GRAVITY 1.011; UROBILINOGEN,URINE NEGATIVE mg/dL (<2.0)
[2019-02-25 15:41] LABS: COLOR,URINE YELLOW
--- NOTE | 2019-02-25 16:13 | ER Document Report ---
ED General - General Chief Complaint: Anxiety Stated Complaint: VAGINAL BLEEDING Time Seen by Provider: 02/25/19 14:58 [facility] - Follow up in 1 week Mode of Arrival: Ambulatory Information source: Patient Notes: This 33-year-old female presents today with complaints of vaginal bleed and . Reports that she is approximately 6 weeks . G2, P1. Patient reports that she noticed some brown blood early this morning. Also complains of some abdominal cramping and low back pain. She reports she took 2 test at home which both were positive and also followed up with the health department last week. Patient denies trauma, denies pain with void, denies fever vomiting diarrhea but reports some nausea mild. Patient also reports that she has a history of depression during . She denies suicidal ideations. Patient reports she is had to call out from work for the past 3 days. She works from home. TRAVEL OUTSIDE OF THE [place] IN LAST 30 DAYS: No - HPI Onset: This morning Quality of pain: Cramping Severity: Mild Associated symptoms: Nausea Exacerbated by: Denies Relieved by: Denies Similar symptoms previously: No Recently seen / treated by doctor: No - Related Data Allergies/Adverse Reactions: doxylamine succinate [From [employer]] Allergy (Severe, Verified 02/25/19 13:49) Difficulty breathing Past Medical History - General Information source: Patient - Social History Smoking Status: Unknown if Ever Smoked Cigarette use (# per day): No Frequency of alcohol use: None Drug Abuse: None Occupation: works from home Lives with: Family Family History: Reviewed & Not Pertinent, DM Patient has suicidal ideation: No Patient has homicidal ideation: No Renal/ Medical History: Denies: Hx Peritoneal Dialysis Psychiatric Medical History: Reports: Hx Attention Deficit Hyperactivity Disorder, Hx Depression Past Surgical History: Reports: Hx Abdominal Surgery - laparoscopy, Hx Section, Hx Cholecystectomy, Hx Orthopedic Surgery - KNEE X 4 - HAND X1 - Immunizations Immunizations up to date: No Hx Diphtheria, Pertussis, Tetanus Vaccination: No Review of Systems - Review of Systems Notes: Review HPI for review of systems., All other systems negative Physical Exam - Vital signs Vitals: Temp Pulse Resp BP Pulse Ox 98.0 F 73 24 H 111/64 100 02/25/19 13:57 02/25/19 13:57 02/25/19 13:57 02/25/19 13:57 02/25/19 13:57 - Notes Notes: PHYSICAL EXAMINATION: GENERAL: Well-appearing and in no acute distress HEAD: Atraumatic, normocephalic. EYES: Pupils equal round extraocular movements intact, sclera anicteric, conjunctiva are normal. ENT: nares patent, . Moist mucous membranes. NECK: Normal range of motion, supple without lymphadenopathy LUNGS: CTAB and equal. No wheezes rales or rhonchi. HEART: Regular rate and rhythm without murmurs ABDOMEN: Soft, no tenderness. No guarding, no rebound BACK:Denies pain, no CVA tenderness EXTREMITIES: Normal range of motion, NEUROLOGICAL: Cranial nerves grossly intact. PSYCH: Normal mood, normal affect. SKIN: Warm, Dry, normal turgor, no rashes or lesions noted Course - Re-evaluation Re-evalutation: 02/25/19 18:37 This 33-year-old male that presents to the emergency department with reports she had an episode of vaginal bleeding that was dark brown this morning. Patient reports she is . She took 2 home tests which were both positive and was confirmed by the health department. Patient denies trauma. Reports some abdominal cramping and low back pain. Reports she is G2, P1. Obstetrics Ultrasound 02/25/19 14:59 IMPRESSION: LIVING INTRAUTERINE . EGA 6 WEEKS 2 DAYS. Trimester of : First trimester - 0 to 13 weeks. 02/25/19 15:10 Blood Type O POSITIVE 02/25/19 15:10 MCV 90 fl (80-97) 02/25/19 15:10 MCH 29.9 pg (27.0-33.4) 02/25/19 15:10 MCHC 33.2 g/dL (32.0-36.0) 02/25/19 15:10 RDW 14.4 % (11.5-14.0) H 02/25/19 15:10 Seg Neutrophils % 65.1 % (42-78) 02/25/19 15:10 Lymphocytes % 27.5 % (13-45) 02/25/19 15:10 Monocytes % 6.1 % (3-13) 02/25/19 15:10 Eosinophils % 0.5 % (0-6) 02/25/19 15:10 Basophils % 0.8 % (0-2) 02/25/19 15:10 Absolute Neutrophils 5.6 10^3/uL (1.7-8.2) 02/25/19 15:10 Absolute Lymphocytes 2.4 10^3/uL (0.5-4.7) 02/25/19 15:10 Absolute Monocytes 0.5 10^3/uL (0.1-1.4) 02/25/19 15:10 Absolute Eosinophils 0.0 10^3/uL (0.0-0.6) 02/25/19 15:10 Absolute Basophils 0.1 10^3/uL (0.0-0.2) 02/25/19 15:10 Urine Color YELLOW 02/25/19 15:10 Urine Appearance CLOUDY 02/25/19 15:10 Urine pH 6.0 (5.0-9.0) 02/25/19 15:10 Ur Specific [place] 1.011 02/25/19 15:10 Urine Protein NEGATIVE mg/dL (NEGATIVE) 02/25/19 15:10 Urine Glucose (UA) NEGATIVE mg/dL (NEGATIVE) 02/25/19 15:10 Urine Ketones TRACE mg/dL (NEGATIVE) H 02/25/19 15:10 Urine Blood NEGATIVE (NEGATIVE) 02/25/19 15:10 Urine Nitrite NEGATIVE (NEGATIVE) 02/25/19 15:10 Ur Leukocyte Esterase NEGATIVE (NEGATIVE) 02/25/19 15:10 Urine WBC (Auto) 10 /HPF 02/25/19 15:10 Urine RBC (Auto) 1 /HPF 02/25/19 15:10 02/25/19 18:38 Labs unremarkable Rh+ no need for RhoGam. Ultrasound showed 6-week 1 day intrauterine . Subchorionic bleed. Patient informed of results. Informed of follow-up repeat hCG on February 27. Patient was instructed to return emergency department for increased pain bleeding concerns. She verbalized understand all instructions. - Vital Signs Vital signs: Temp Pulse Resp BP Pulse Ox 98.7 F 76 18 114/78 99 02/25/19 17:53 02/25/19 17:53 02/25/19 17:53 02/25/19 17:53 02/25/19 17:53 - Laboratory Result Diagrams: 02/25/19 15:10 Laboratory results interpreted by me: 02/25/19 02/25/19 02/25/19 15:10 15:10 15:10 RDW 14.4 H Beta HCG, Quant 88217.00 H Urine Ketones TRACE H - Diagnostic Test Radiology reviewed: Image reviewed, Reports reviewed Discharge - Discharge Clinical Impression: , Vaginal bleeding during Condition: Stable Disposition: HOME, SELF-CARE Instructions: Bleeding During Early (OM), Ob-[employer] Doctors, [facility] [place] Additional Instructions: *You have been evaluated for abdominal pain, vaginal bleeding during *The ultrasound showed a 6week 1 day intrauterine with small s ubchorionic bleed *Follow up in 2 days, February 27 for a repeat HCG. You may call [phone] for results Saturday - Saturday 8-4[place] [id number] *Follow up with your PHYSICAL CHEMIST or the health department within one week for recheck and repeat Ultrasound as indicated *Avoid sexual intercourse until follow up *Return to ED for worsening condition, changes, needs, increased abdominal pain, increased vaginal bleeding Forms: Follow-Up Laboratory Testing Referrals: [facility] [Provider Group] - Follow up in 1 week
--- NOTE | 2019-02-25 16:25 | RADIOLOGY REPORT (SQ) ---
EXAM DESCRIPTION: U/S OB TRANSVAGINAL W/O DOP COMPLETED DATE/TIME: 02/25/2019 4:12 pm REASON FOR STUDY: 6 weeks preg, vag bleed, abd pain COMPARISON: None. TECHNIQUE: Transvaginal static and realtime grayscale images acquired of the pelvis. Additional marli cted spectral and color Doppler images recorded. All images stored on PACs. bHCG: Pending CLINICAL DATES: 6 weeks 1 day LIMITATIONS: None. FINDINGS: FETUS: Single Living intrauterine . ULTRASOUND EGA: 6 weeks 2 days. ULTRASOUND ESMER: 10/19/2019 EFW: Not applicable less than 20 weeks. CRL: 4.9 mm FHR: bladder is noted. SURVEY: Too early to assess. AMNIOTIC FLUID: Too early to assess. PLACENTA: Not yet developed due to early gestation. SUBCHORIONIC BLEED: Yes SIZE OF BLEED: 1.0 x 1.3 x 0.9 cm. UTERUS: No masses. No anomalies. CERVICAL LENGTH: 2.4 cm. Closed. RIGHT ADNEXA: Normal ovary with normal vascular flow. No adnexal free fluid. No adnexal masses. LEFT ADNEXA: 2.0 cm complex left ovarian cyst. No adnexal free fluid. No adnexal masses. FREE FLUID: None. OTHER: No other significant finding. IMPRESSION: LIVING INTRAUTERINE . EGA 6 WEEKS 2 DAYS. Trimester of : First trimester - 0 to 13 weeks. TECHNICAL DOCUMENTATION: JOB ID: [id number] [employer]- All Rights Reserved Reading location - IP/workstation name: [email or web address]
[2019-02-25 17:54] VITALS: BP 114/78
== END 2019-02-25 17:54 | disposition home or self-care (01) ==
LOC: ER 13:48
DX: O20.8 Other hemorrhage in early pregnancy (principal); O99.89 Other specified diseases and conditions complicating pregnancy, childbirth and the puerperium; M54.5 Low back pain; O26.891 Other specified pregnancy related conditions, first trimester; R10.9 Unspecified abdominal pain; R11.0 Nausea; Z88.8 Allergy status to other drugs, medicaments and biological substances; Z3A.01 Less than 8 weeks gestation of pregnancy; Z90.49 Acquired absence of other specified parts of digestive tract
CPT/HCPCS: 36415; 76817; 81001; 84702; 85025; 86900; 86901; 99284

== ENCOUNTER 2019-06-06 23:32 | Outpatient (CLI) | payer MEDICAID ==
[2019-06-07 00:50] LABS: APPEARANCE,URINE SLIGHTLY-CLOUDY; BILIRUBIN,URINE NEGATIVE (NEGATIVE); COLOR,URINE STRAW; GLUCOSE, URINE NEGATIVE (NEGATIVE); KETONES,URINE NEGATIVE (NEGATIVE); LEUKOCYTE ESTERASE,URINE NEGATIVE (NEGATIVE); NITRITE,URINE NEGATIVE (NEGATIVE); PROTEIN,URINE NEGATIVE (NEGATIVE); URINE SPECIFIC GRAVITY 1.001; UROBILINOGEN,URINE NEGATIVE mg/dL (<2.0)
[2019-06-07 01:09] LABS: URINE AMPHETAMINES SCREEN NEGATIVE; URINE BARBITURATES SCREEN NEGATIVE; URINE BENZODIAZEPINES SCREEN NEGATIVE; URINE COCAINE SCREEN NEGATIVE; URINE MARIJUANA (THC) SCREEN NEGATIVE; URINE METHADONE SCREEN NEGATIVE; URINE PHENCYCLIDINE SCREEN NEGATIVE
== END 2019-06-07 01:19 | disposition home or self-care (01) ==
LOC: LC 23:32
PROVIDERS: ATTEND Obstetrics & Gynecology
PROC: 4A1HXCZ Monitoring of Products of Conception, Cardiac Rate, External Approach (ICD-10-PCS; principal; 2019-06-06)
DX: O47.02 False labor before 37 completed weeks of gestation, second trimester (principal); Z3A.20 20 weeks gestation of pregnancy
CPT/HCPCS: 80307; 81001

== ENCOUNTER 2019-07-17 23:05 | Outpatient (CLI) | payer MEDICAID ==
[2019-07-18 00:27] LABS: APPEARANCE,URINE CLOUDY; BILIRUBIN,URINE NEGATIVE (NEGATIVE); COLOR,URINE YELLOW; GLUCOSE, URINE NEGATIVE (NEGATIVE); KETONES,URINE NEGATIVE (NEGATIVE); LEUKOCYTE ESTERASE,URINE NEGATIVE (NEGATIVE); NITRITE,URINE NEGATIVE (NEGATIVE); PROTEIN,URINE NEGATIVE (NEGATIVE); URINE SPECIFIC GRAVITY 1.006; UROBILINOGEN,URINE NEGATIVE mg/dL (<2.0)
[2019-07-18 00:50] LABS: URINE AMPHETAMINES SCREEN NEGATIVE; URINE BARBITURATES SCREEN NEGATIVE; URINE BENZODIAZEPINES SCREEN NEGATIVE; URINE COCAINE SCREEN NEGATIVE; URINE MARIJUANA (THC) SCREEN NEGATIVE; URINE METHADONE SCREEN NEGATIVE; URINE PHENCYCLIDINE SCREEN NEGATIVE
[2019-07-18 01:23] LABS: ABSOLUTE EOSINOPHILS # (AUTO) 0.1 10^3/uL (0.0-0.6); ABSOLUTE LYMPHOCYTES (AUTO) 2.3 10^3/uL (0.5-4.7); ABSOLUTE MONOCYTES (AUTO) 0.7 10^3/uL (0.1-1.4); ABSOLUTE NEUT (AUTO) 6.2 10^3/uL (1.7-8.2); BASOPHILS % (AUTO) 0.4 % (0-2); EOSINOPHILS % (AUTO) 0.9 % (0-6); HEMATOCRIT 29.1 % (36.0-47.0); LYMPHOCYTES % (AUTO) 25.1 % (13-45); MEAN CORPUSCULAR HEMOGLOBIN 31.3 pg (27.0-33.4); MEAN CORPUSCULAR HGB CONC 34.3 g/dL (32.0-36.0); MEAN CORPUSCULAR VOLUME 91 fl (80-97); MONOCYTES % (AUTO) 7.8 % (3-13); PLATELET COUNT 192 10^3/uL (150-450); RED BLOOD COUNT 3.19 10^6/uL (3.72-5.28); RED CELL DISTRIBUTION WIDTH 13.7 % (11.5-14.0); SEGMENTED NEUTROPHILS % (AUTO) 65.8 % (42-78); TOTAL CELLS COUNTED % (AUTO) 100 %; WHITE BLOOD COUNT 9.3 10^3/uL (4.0-10.5)
[2019-07-18] MEDS ORDERED: MAG HYDROX/AL HYDROX/SIMETH SUSP 30 ML UDCUP PO ONE (02:31)
[2019-07-18] MEDS ORDERED: ACETAMINOPHEN 325 MG TABLET PO ONE (02:31)
[2019-07-18] MEDS ORDERED: ACETAMINOPHEN 325 MG TABLET ONE (02:40)
[2019-07-18] MEDS ORDERED: MAG HYDROX/AL HYDROX/SIMETH SUSP 30 ML UDCUP ONE (02:40)
--- NOTE | 2019-07-18 02:45 | RADIOLOGY REPORT (SQ) ---
EXAM DESCRIPTION: US LIMITED COMPLETED DATE/TME: 07/18/2019 00:00 CLINICAL HISTORY: 34 years, Female, well being COMPARISON: 02/25/2019 TECHNIQUE: Transabdominal technique. Grayscale and Doppler images of the fetus LIMITATIONS: None. FINDINGS: The maternal cervix is closed and measures 3.4 cm in length. The heart rate measures 144 bpm. The placenta is anterior. No evidence of placenta previa or abruption. The MARCIO is within normal limits and measures 14.7 cm. Biometry: BPD: 6.66 cm = 26 weeks 6 days. HC: 25.0 cm = 27 weeks 1 days. AC: 22.86 cm = 27 weeks 2 days. FL: 5.11 cm = 27 weeks 3 days. Ratios (%): FL/AC: 22.4 (20-24). FL/BPD: 76.7 (71-87). HC/AC: 1.09 (1.04-1.22). CI: 82.9 (70-86). EFW = 1047 grams. 56%ile by [place]. (Please note that an incorrect LMP could make the percentile value inaccurate.) Clinical: LMP: 01/13/2019. MA: 26 weeks four days. ESMER: 10/20/2019. Ultrasound: MA: 27 weeks one day. ESMER: 10/16/2019. IMPRESSION: Single live intrauterine , as described above. copyright 2010 [employer]- All Rights Reserved
== END 2019-07-18 03:22 | disposition home or self-care (01) ==
LOC: LC 23:05
PROVIDERS: ATTEND Student in an Organized Health Care Education/Training Program
PROC: 4A1HXCZ Monitoring of Products of Conception, Cardiac Rate, External Approach (ICD-10-PCS; principal; 2019-07-17)
DX: O47.02 False labor before 37 completed weeks of gestation, second trimester (principal); Z3A.26 26 weeks gestation of pregnancy
CPT/HCPCS: 59025; 36415; 85025; 81001; 80307; 76815; J3490 ×2

== ENCOUNTER 2019-07-30 17:37 | Outpatient (CLI) | payer MEDICAID | END 2019-07-30 18:15 | disposition home or self-care (01) | LOC: LC 17:37 | PROVIDERS: ATTEND Obstetrics & Gynecology Gynecology | DX: O47.02 False labor before 37 completed weeks of gestation, second trimester (principal); Z3A.28 28 weeks gestation of pregnancy ==

== ENCOUNTER 2019-08-26 12:09 | Outpatient (CLI) | payer MEDICAID ==
[2019-08-26 13:02] LABS: APPEARANCE,URINE SLIGHTLY-CLOUDY; BILIRUBIN,URINE NEGATIVE (NEGATIVE); COLOR,URINE YELLOW; GLUCOSE, URINE NEGATIVE (NEGATIVE); KETONES,URINE NEGATIVE (NEGATIVE); LEUKOCYTE ESTERASE,URINE TRACE (NEGATIVE); NITRITE,URINE NEGATIVE (NEGATIVE); PROTEIN,URINE NEGATIVE (NEGATIVE); URINE SPECIFIC GRAVITY 1.006; UROBILINOGEN,URINE NEGATIVE mg/dL (<2.0)
[2019-08-26 13:13] LABS: URINE AMPHETAMINES SCREEN NEGATIVE; URINE BARBITURATES SCREEN NEGATIVE; URINE BENZODIAZEPINES SCREEN NEGATIVE; URINE COCAINE SCREEN NEGATIVE; URINE MARIJUANA (THC) SCREEN NEGATIVE; URINE METHADONE SCREEN NEGATIVE; URINE PHENCYCLIDINE SCREEN NEGATIVE
[2019-08-26 14:00] LABS: ABSOLUTE EOSINOPHILS # (AUTO) 0.1 10^3/uL (0.0-0.6); ABSOLUTE LYMPHOCYTES (AUTO) 1.7 10^3/uL (0.5-4.7); ABSOLUTE MONOCYTES (AUTO) 0.6 10^3/uL (0.1-1.4); ABSOLUTE NEUT (AUTO) 7.3 10^3/uL (1.7-8.2); BASOPHILS % (AUTO) 0.3 % (0-2); EOSINOPHILS % (AUTO) 0.6 % (0-6); HEMATOCRIT 29.1 % (36.0-47.0); LYMPHOCYTES % (AUTO) 17.5 % (13-45); MEAN CORPUSCULAR HGB CONC 34.5 g/dL (32.0-36.0); MEAN CORPUSCULAR VOLUME 90 fl (80-97); MONOCYTES % (AUTO) 6.4 % (3-13); PLATELET COUNT 242 10^3/uL (150-450); RED BLOOD COUNT 3.24 10^6/uL (3.72-5.28); SEGMENTED NEUTROPHILS % (AUTO) 75.2 % (42-78); TOTAL CELLS COUNTED % (AUTO) 100 %; WHITE BLOOD COUNT 9.6 10^3/uL (4.0-10.5)
[2019-08-26 14:20] LABS: ALKALINE PHOSPHATASE 93 U/L (38-126); ANION GAP 6 (5-19); ASPARTATE AMINO TRANSFERASE 25 U/L (14-36); BILIRUBIN,TOTAL 0.2 mg/dL (0.2-1.3); BLOOD UREA NITROGEN 7 mg/dL (7-20); CARBON DIOXIDE 24 mmol/L (22-30); CHLORIDE 106 mmol/L (98-107); GLUCOSE 86 mg/dL (75-110); POTASSIUM 4.1 mmol/L (3.6-5.0); TOTAL PROTEIN 5.7 g/dL (6.3-8.2)
[2019-08-26 14:22] LABS: ALCOHOL < 10 mg/dL (NONE DETECTED)
--- NOTE | 2019-08-26 14:43 | Non Stress Test Report ---
Non Stress Test Datetime Report Generated by CPN: 08/26/2019 14:43 DEMOGRAPHIC EGA NST: 32.1 INDICATION Indication for Study (NST) Other: false labor MONITORING Time on Monitor: 08/26/2019 12:14 Time off Monitor: 08/26/2019 14:11 NST Duration: 117 NST INTERVENTIONS NST Interventions: PO Hydration; Reposition Patient BABY A: [id number] BABY A Movement : Present Contraction Frequency : 0 FHR Baseline : 130 Accelerations : 15X15 Decelerations : None Variability : Moderate 6-25bpm NST Review: Meets Criteria for Reactive NST NST Review and Verified By : Audra Felix RN NST Results: Reactive NST REPORT Report Trigger: Send Report
== END 2019-08-26 14:38 | disposition home or self-care (01) ==
LOC: LC 12:09
PROVIDERS: ATTEND Obstetrics & Gynecology
PROC: 4A1HXCZ Monitoring of Products of Conception, Cardiac Rate, External Approach (ICD-10-PCS; principal; 2019-08-26)
DX: O47.03 False labor before 37 completed weeks of gestation, third trimester (principal); Z3A.32 32 weeks gestation of pregnancy
CPT/HCPCS: 36415; 59025; 80053; 80307; 81001; 85025; 87086

== ENCOUNTER 2019-10-04 09:53 | Outpatient (CLI) | payer MEDICAID ==
[2019-10-04 10:42] LABS: APPEARANCE,URINE CLOUDY; BILIRUBIN,URINE NEGATIVE (NEGATIVE); COLOR,URINE YELLOW; GLUCOSE, URINE NEGATIVE (NEGATIVE); KETONES,URINE NEGATIVE (NEGATIVE); LEUKOCYTE ESTERASE,URINE NEGATIVE (NEGATIVE); NITRITE,URINE NEGATIVE (NEGATIVE); PROTEIN,URINE NEGATIVE (NEGATIVE); URINE SPECIFIC GRAVITY 1.006; UROBILINOGEN,URINE NEGATIVE mg/dL (<2.0)
[2019-10-04] MEDS ORDERED: RINGERS SOLUTION,LACTATED 1,000 ML IV PRN (10:52)
[2019-10-04] MEDS ORDERED: MORPHINE SULFATE 10 MG/ML INJ IV ONE (10:53)
[2019-10-04] MEDS ORDERED: PROMETHAZINE HCL INJ 25 MG/1 ML VIAL IV ONE (10:54)
[2019-10-04 11:02] LABS: URINE AMPHETAMINES SCREEN NEGATIVE; URINE BARBITURATES SCREEN NEGATIVE; URINE BENZODIAZEPINES SCREEN NEGATIVE; URINE COCAINE SCREEN NEGATIVE; URINE MARIJUANA (THC) SCREEN NEGATIVE; URINE METHADONE SCREEN NEGATIVE; URINE PHENCYCLIDINE SCREEN NEGATIVE
[2019-10-04] MEDS ORDERED: MORPHINE SULFATE 10 MG/ML INJ ONE (11:10)
[2019-10-04] MEDS ORDERED: PROMETHAZINE HCL INJ 25 MG/1 ML VIAL ONE (11:10)
--- NOTE | 2019-10-04 15:12 | Non Stress Test Report ---
Non Stress Test Datetime Report Generated by CPN: 10/04/2019 15:12 DEMOGRAPHIC EGA NST: 37.5 INDICATION Indication for Study (NST) Other: IUP @ 37.5, no cervical dialation MONITORING Monitor Explained: Monitor Explained; Test Explained; Patient Verbalized Understanding Time on Monitor: 10/04/2019 10:14 Time off Monitor: 10/04/2019 14:53 NST Duration: 279 NST INTERVENTIONS NST Interventions: PO Hydration; Reposition Patient Physician Notified NST: Dr Godwin BABY A: [id number] BABY A Movement : Present Contraction Frequency : 2-9 FHR Baseline : 135 Accelerations : 15X15 Decelerations : None Variability : Moderate 6-25bpm NST Review: Meets Criteria for Reactive NST NST Review and Verified By : Spencer MedranogwickADRIEN NST Results: Reactive NST COMMENTS NST Comments: MD on unit NST REPORT Report Trigger: Send Report
== END 2019-10-04 15:04 | disposition home or self-care (01) ==
LOC: LC 09:53
PROVIDERS: ATTEND Obstetrics & Gynecology
PROC: 4A1HXCZ Monitoring of Products of Conception, Cardiac Rate, External Approach (ICD-10-PCS; principal; 2019-10-04)
DX: O47.1 False labor at or after 37 completed weeks of gestation (principal); Z3A.37 37 weeks gestation of pregnancy
CPT/HCPCS: 59025; 81005; 80307; J2270; J2550

== ENCOUNTER 2019-10-16 04:43 | Inpatient (IN) | payer MEDICAID ==
[2019-10-09 09:16] LABS: APPEARANCE,URINE CLOUDY; BILIRUBIN,URINE NEGATIVE (NEGATIVE); COLOR,URINE YELLOW; GLUCOSE, URINE NEGATIVE (NEGATIVE); KETONES,URINE NEGATIVE (NEGATIVE); LEUKOCYTE ESTERASE,URINE NEGATIVE (NEGATIVE); NITRITE,URINE NEGATIVE (NEGATIVE); PROTEIN,URINE NEGATIVE (NEGATIVE); URINE SPECIFIC GRAVITY 1.009; UROBILINOGEN,URINE NEGATIVE mg/dL (<2.0)
[2019-10-09 09:42] LABS: URINE AMPHETAMINES SCREEN NEGATIVE; URINE BARBITURATES SCREEN NEGATIVE; URINE BENZODIAZEPINES SCREEN NEGATIVE; URINE COCAINE SCREEN NEGATIVE; URINE MARIJUANA (THC) SCREEN NEGATIVE; URINE METHADONE SCREEN NEGATIVE; URINE PHENCYCLIDINE SCREEN NEGATIVE
[2019-10-09 10:24] LABS: ABSOLUTE LYMPHOCYTES (AUTO) 1.4 10^3/uL (0.5-4.7); ABSOLUTE MONOCYTES (AUTO) 0.5 10^3/uL (0.1-1.4); ABSOLUTE NEUT (AUTO) 6.1 10^3/uL (1.7-8.2); BASOPHILS % (AUTO) 0.2 % (0-2); EOSINOPHILS % (AUTO) 0.5 % (0-6); HEMATOCRIT 30.4 % (36.0-47.0); HEMOGLOBIN 10.6 g/dL (12.0-15.5); LYMPHOCYTES % (AUTO) 17.7 % (13-45); MEAN CORPUSCULAR HEMOGLOBIN 30.9 pg (27.0-33.4); MEAN CORPUSCULAR HGB CONC 34.8 g/dL (32.0-36.0); MEAN CORPUSCULAR VOLUME 89 fl (80-97); PLATELET COUNT 193 10^3/uL (150-450); RED BLOOD COUNT 3.41 10^6/uL (3.72-5.28); RED CELL DISTRIBUTION WIDTH 13.8 % (11.5-14.0); SEGMENTED NEUTROPHILS % (AUTO) 75.6 % (42-78); TOTAL CELLS COUNTED % (AUTO) 100 %; WHITE BLOOD COUNT 8.1 10^3/uL (4.0-10.5)
--- NOTE | 2019-10-09 18:13 | EKG REPORT ---
SEVERITY:- ABNORMAL ECG - SINUS RHYTHM NONSPECIFIC T ABNORMALITIES, INFERIOR LEADS : Confirmed by: Ashley Jackson 09-Oct-2019 18:13:02
[2019-10-16] MEDS ORDERED: CEFAZOLIN 2 GM/D5W RTU 2 GM/50 ML RTUPB IV PRN (05:20)
[2019-10-16] MEDS ORDERED: RINGERS SOLUTION,LACTATED 1,000 ML IV PRN ×3 (05:21→08:56)
[2019-10-16] MEDS ORDERED: EPHEDRINE SULFATE INJ 50 MG/1 ML AMPULE ONE (06:49)
[2019-10-16] MEDS ORDERED: FENTANYL CITRATE INJ/PF 100 MCG/2 ML AMPUL ONE (06:49)
[2019-10-16] MEDS ORDERED: MIDAZOLAM 2 MG/2 ML INJ ONE (06:49)
[2019-10-16] MEDS ORDERED: OXYTOCIN 10 UNIT/ML VIAL ONE (06:49)
[2019-10-16] MEDS ORDERED: ONDANSETRON HCL INJ/PF 4 MG/2 ML SDV ONE (06:49)
[2019-10-16] MEDS ORDERED: PROPOFOL INJ 200 MG/20 ML VIAL IV ONE (06:50)
[2019-10-16] MEDS ORDERED: OXYTOCIN/NORMAL SALINE 20 UNIT/1,000 ML RTUINJ ONE (07:00)
[2019-10-16] MEDS ORDERED: RINGERS SOLUTION,LACTATED 1,000 ML IV ONE (07:00)
[2019-10-16] MEDS ORDERED: PHENYLEPHRINE HCL INJ/PF 10 MG/1 ML SDV ONE (07:01)
[2019-10-16] MEDS ORDERED: DIPHENHYDRAMINE HCL 50 MG/ML VIAL IV PRN (07:17)
[2019-10-16] MEDS ORDERED: FENTANYL CITRATE INJ/PF 100 MCG/2 ML AMPUL IV PRN ×3 (07:17)
[2019-10-16] MEDS ORDERED: PROMETHAZINE HCL INJ 25 MG/1 ML VIAL IV PRN ×3 (07:17→08:56)
[2019-10-16] MEDS ORDERED: ONDANSETRON HCL INJ/PF 4 MG/2 ML SDV IV PRN (07:17)
[2019-10-16] MEDS ORDERED: CEFAZOLIN INJ 1 GM VIAL ONE (08:06)
[2019-10-16] MEDS ORDERED: SIMETHICONE 80 MG TAB.CHEW PO PRN (08:56)
[2019-10-16] MEDS ORDERED: ACETAMINOPHEN 1,000 MG/100 ML RTUPB IV PRN (08:56)
[2019-10-16] MEDS ORDERED: OXYCODONE-ACETAMINOPHEN 5-325 MG TABLET PO PRN (08:56)
[2019-10-16] MEDS ORDERED: DIPH/PERTUSS(ACELL)/TETANUS VAC/PF 0.5 ML SYR (>=10YO) IM PRN (08:56)
[2019-10-16] MEDS ORDERED: OXYTOCIN/NORMAL SALINE 20 UNIT/1,000 ML RTUINJ IV PRN (08:56)
[2019-10-16] MEDS ORDERED: ACETAMINOPHEN 325 MG TABLET PO PRN (08:56)
[2019-10-16] MEDS ORDERED: MEASLES,MUMPS&RUBELLA VACC/PF 0.5 ML VIAL SUBCUT PRN (08:56)
--- NOTE | 2019-10-16 09:01 | Operative Report ---
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 A transverse skin incision was made with a scalpel and carried through tothe underlying layer of fascia with the same scalpel. The fascia was excised in the midline and extended laterally with Michelle. The fascia was then dissected from the rectus muscle sharply with Michelle and the rectus muscle was divided and the peritoneal cavity was entered sharply with the same Metzenbaum. With good visualization of the bladder and the uterus the bladder blade was inserted. The hysterotomy was nicked with a scalpel and extended laterally with surgeon finger fraction. The was thendelivered atraumatically. The nose and mouth were suctioned with a suction bulb, the cord was clamped and cut and handed off to awaiting pediatricians. Cord blood was collected. The placenta was removed manually. The uterus was exteriorized and cleared of clots and debris. The hysterotomy was closed with 0 Monocryl in a running, locked fashion. A second layer of the same suture was used to imbricate to ensure hemostasis. Attention was then turned to the fallopian tubes where the right fallopian tube was grasped with a Tara, the mesosalpinx was divided with a Bovie. a 3-1/2 cm segment of fallopian tube was tied off with 2 pieces of 2-0 chromic.this segment was ligated using Metzenbaums and the pedicles were made hemostatic with the Bovie. This procedure was repeated on the left fallopian tube without difficulty. The uterus was returned to the abdomen and peritoneal cavity was cleared of clots and debris. The pedicles were inspected and they were still hemostatic. The rectus muscle and peritoneum were repaired with mattress stitch of 2-0 Chromic. The fascia was closed with 0-Vicryl. The subcutaneous layer was closed with plain catgut and the skin was closed with 4-0 Vicryl. The patient tolerated the procedure well. Sponge, lap, and needle counts correct x2 and the patient was taken to recovery in stable condition.
[2019-10-16] MEDS ORDERED: ACETAMINOPHEN 1,000 MG/100 ML RTUPB IV ONE (09:12)
[2019-10-16] MEDS ORDERED: MEPERIDINE HCL/PF INJ 25 MG/1 ML DISP.SYRIN ONE (09:18)
[2019-10-16] MEDS: MEPERIDINE HCL/PF INJ 25 MG/1 ML DISP.SYRIN IV PRN ×2 (09:25→10:05)
[2019-10-16] MEDS ORDERED: KETOROLAC TROMETHAMINE INJ/PF 30 MG/1 ML SDV ONE ×2 (09:51→10:29)
[2019-10-16] MEDS ORDERED: MORPHINE SULFATE 10 MG/ML INJ ONE (09:54)
[2019-10-16] MEDS: MORPHINE SULFATE 10 MG/ML INJ IV PRN ×5 (10:00→18:07)
[2019-10-16] MEDS ORDERED: KETOROLAC TROMETHAMINE INJ/PF 30 MG/1 ML SDV IV ONE (10:45)
[2019-10-16] MEDS: OXYCODONE-ACETAMINOPHEN 5-325 MG TABLET PO PRN ×3 (11:22→19:48)
[2019-10-16] MEDS: PRENATAL VITAMIN W DHA CAPSULE PO SCH (12:00)
[2019-10-16] MEDS: DOCUSATE SODIUM 100 MG CAPSULE PO SCH ×2 (12:00→18:08)
[2019-10-16] MEDS: IBUPROFEN 800 MG TABLET PO SCH ×2 (12:01→23:52)
[2019-10-16] MEDS: CEFAZOLIN 1 GM/D5W RTU 1 GM/50 ML RTUPB IV SCH ×3 (12:01→23:54)
[2019-10-16] MEDS ORDERED: KETOROLAC TROMETHAMINE INJ/PF 30 MG/1 ML SDV IV SCH (14:00)
[2019-10-16] MEDS: KETOROLAC TROMETHAMINE INJ/PF 30 MG/1 ML SDV IV SCH (19:46)
[2019-10-17] MEDS: OXYCODONE-ACETAMINOPHEN 5-325 MG TABLET PO PRN ×5 (00:28→20:55)
[2019-10-17] MEDS: KETOROLAC TROMETHAMINE INJ/PF 30 MG/1 ML SDV IV SCH (02:18)
[2019-10-17] MEDS: ZOLPIDEM TARTRATE 5 MG TABLET PO PRN ×2 (02:29→23:04)
[2019-10-17] MEDS ORDERED: LIDOCAINE 0.5% INJ-PF (5 MG/ML) 50 ML SDV SUBCUT PRN (05:00)
[2019-10-17] MEDS ORDERED: NORMAL SALINE 1000 ML (RENAL PATIENTS) IV PRN (05:00)
[2019-10-17] MEDS: CEFAZOLIN 1 GM/D5W RTU 1 GM/50 ML RTUPB IV SCH ×4 (05:06→23:54)
[2019-10-17] MEDS: IBUPROFEN 800 MG TABLET PO SCH ×5 (06:20→23:05)
[2019-10-17 07:04] LABS: HEMATOCRIT 28.8 % (36.0-47.0); MEAN CORPUSCULAR HEMOGLOBIN 31.1 pg (27.0-33.4); MEAN CORPUSCULAR HGB CONC 34.7 g/dL (32.0-36.0); MEAN CORPUSCULAR VOLUME 89 fl (80-97); PLATELET COUNT 184 10^3/uL (150-450); RED BLOOD COUNT 3.22 10^6/uL (3.72-5.28); RED CELL DISTRIBUTION WIDTH 14.5 % (11.5-14.0); WHITE BLOOD COUNT 8.9 10^3/uL (4.0-10.5)
[2019-10-17] MEDS: DOCUSATE SODIUM 100 MG CAPSULE PO SCH ×2 (09:40→17:27)
[2019-10-17] MEDS: PRENATAL VITAMIN W DHA CAPSULE PO SCH (09:41)
--- NOTE | 2019-10-17 12:40 | PDOC PROGRESS REPORT ---
Subjective-OB Progress Note for:: 10/17/19 Subjective: Pt doing well, no concerns. She reports light bleeding, reg diet and _+flatus, voiding without difficulty. Ambulatory. Physical Exam (OB) Vital Signs: Temp Pulse Resp BP Pulse Ox 97.8 F 70 16 117/75 100 10/17/19 11:13 10/17/19 11:13 10/17/19 11:13 10/17/19 11:13 10/17/19 11:13 Intake & Output 10/16/19 10/17/19 10/18/19 06:59 06:59 06:59 Output Total 3800 1000 Balance -3800 -1000 - Dressing Removed: - opsite Incision: Dressing, Well Approximated Closure Type: opsite - Lochia Lochia Amount: Small 10-25 ml Lochia Color: Rubra/Red - Abdomen Description: Soft, Round Hernia Present: No Fundal Description: Firm, Midline Fundal Height: u/u - u/2 Objective-Diagnostic Laboratory: 10/17/19 06:33 10/17/19 06:33 WBC 8.9 RBC 3.22 L Hgb 10.0 L Hct 28.8 L MCV 89 MCH 31.1 MCHC 34.7 RDW 14.5 H Plt Count 184 Assessment and Plan(PN) - Assessment and Plan (1) Status post repeat low transverse section Is this a current diagnosis for this admission?: Yes - Time Spent with Patient Time with patient: Less than 15 minutes Medications reviewed and adjusted accordingly: Yes - Disposition Anticipated Discharge: Home Within: within 24 hours
[2019-10-18] MEDS: OXYCODONE-ACETAMINOPHEN 5-325 MG TABLET PO PRN ×3 (02:12→10:32)
[2019-10-18] MEDS: IBUPROFEN 800 MG TABLET PO SCH ×2 (05:11→11:39)
[2019-10-18] MEDS: CEFAZOLIN 1 GM/D5W RTU 1 GM/50 ML RTUPB IV SCH ×2 (05:13→12:26)
--- NOTE | 2019-10-18 08:50 | PDOC DISCHARGE SUMMARY ---
Impression - Admit/DC Date/PCP Admission Date/Primary Care Provider: 10/16/19 04:43 EDUARDO LENNON MD Discharge Date: 10/18/19 - Discharge Diagnosis (1) Status post repeat low transverse section Is this a current diagnosis for this admission?: Yes - Additional Information Resuscitation Status: Full Code Discharge Diet: Regular Discharge Activity: Balance Activity w/Rest, No Lifting Over 10 Pounds, No Lifting/Push/Pulling, Pelvic Rest, Slowly Increase Activity, No tub bath Referrals: EDUARDO LENNON MD [Primary Care Provider] - Home Medications: Acetaminophen [Tylenol] 975 mg PO PRN PRN 06/07/19 Hydroxyzine Pamoate [Vistaril 50 mg Capsule] 50 mg PO PRN PRN 06/07/19 Vits96/Iron Fum/Folic [ Tablet] 1 each PO DAILY 06/07/19 HPI Reason(s) for Admission: Ceasarean Section-Repeat Procedures: None Intrapartum Procedure(s): : Low Cervical, Transverse Results Laboratory Results: WBC 8.9 10^3/uL (4.0-10.5) 10/17/19 06:33 RBC 3.22 10^6/uL (3.72-5.28) L 10/17/19 06:33 Hgb 10.0 g/dL (12.0-15.5) L 10/17/19 06:33 Hct 28.8 % (36.0-47.0) L 10/17/19 06:33 MCV 89 fl (80-97) 10/17/19 06:33 MCH 31.1 pg (27.0-33.4) 10/17/19 06:33 MCHC 34.7 g/dL (32.0-36.0) 10/17/19 06:33 RDW 14.5 % (11.5-14.0) H 10/17/19 06:33 Plt Count 184 10^3/uL (150-450) 10/17/19 06:33 Lymph % (Auto) 17.7 % (13-45) 10/09/19 09:18 [place] % (Auto) 6.0 % (3-13) 10/09/19 09:18 Eos % (Auto) 0.5 % (0-6) 10/09/19 09:18 Baso % (Auto) 0.2 % (0-2) 10/09/19 09:18 Absolute Neuts (auto) 6.1 10^3/uL (1.7-8.2) 10/09/19 09:18 Absolute Lymphs (auto) 1.4 10^3/uL (0.5-4.7) 10/09/19 09:18 Absolute Monos (auto) 0.5 10^3/uL (0.1-1.4) 10/09/19 09:18 Absolute Eos (auto) 0.0 10^3/uL (0.0-0.6) 10/09/19 09:18 Absolute Basos (auto) 0.0 10^3/uL (0.0-0.2) 10/09/19 09:18 Seg Neutrophils % 75.6 % (42-78) 10/09/19 09:18 Urine Color YELLOW 10/09/19 08:51 Urine Appearance CLOUDY 10/09/19 08:51 Urine pH 7.0 (5.0-9.0) 10/09/19 08:51 Ur Specific [place] 1.009 10/09/19 08:51 Urine Protein NEGATIVE mg/dL (NEGATIVE) 10/09/19 08:51 Urine Glucose (UA) NEGATIVE mg/dL (NEGATIVE) 10/09/19 08:51 Urine Ketones NEGATIVE mg/dL (NEGATIVE) 10/09/19 08:51 Urine Blood NEGATIVE (NEGATIVE) 10/09/19 08:51 Urine Nitrite NEGATIVE (NEGATIVE) 10/09/19 08:51 Urine Bilirubin NEGATIVE (NEGATIVE) 10/09/19 08:51 Urine Urobilinogen NEGATIVE mg/dL (<2.0) 10/09/19 08:51 Ur Leukocyte Esterase NEGATIVE (NEGATIVE) 10/09/19 08:51 Urine WBC (Auto) 15 /HPF 10/09/19 08:51 Urine RBC (Auto) 2 /HPF 10/09/19 08:51 U Hyaline Cast (Auto) 2 /LPF 10/09/19 08:51 Urine Bacteria (Auto) 3+ /HPF 10/09/19 08:51 Squamous Epi Cells Auto 4 /HPF 10/09/19 08:51 Urine Mucus (Auto) OCC /LPF 10/09/19 08:51 Urine Ascorbic Acid NEGATIVE (NEGATIVE) 10/09/19 08:51 Urine Opiates Screen NEGATIVE 10/09/19 08:51 Urine Methadone Screen NEGATIVE 10/09/19 08:51 Ur Barbiturates Screen NEGATIVE 10/09/19 08:51 Ur Phencyclidine Scrn NEGATIVE 10/09/19 08:51 Ur Amphetamines Screen NEGATIVE 10/09/19 08:51 U Benzodiazepines Scrn NEGATIVE 10/09/19 08:51 Urine Cocaine Screen NEGATIVE 10/09/19 08:51 U Marijuana (THC) Screen NEGATIVE 10/09/19 08:51 Blood Type O POSITIVE 10/15/19 12:00 Antibody Screen NEGATIVE 10/15/19 12:00 Plan Plan of Treatment: f/u as scheduled Time Spent: Less than 30 Minutes
[2019-10-18] MEDS: DOCUSATE SODIUM 100 MG CAPSULE PO SCH (10:32)
[2019-10-18] MEDS: PRENATAL VITAMIN W DHA CAPSULE PO SCH (10:32)
[2019-10-18 11:07] VITALS: BP 123/69
== END 2019-10-18 13:30 | disposition home or self-care (01) | DRG 785 ==
LOC: 2S 04:43
PROVIDERS: ADMIT Obstetrics & Gynecology; ATTEND Obstetrics & Gynecology
PROC: 0U570ZZ Destruction of Bilateral Fallopian Tubes, Open Approach (ICD-10-PCS; 2019-10-16)
PROC: 10D00Z1 Extraction of Products of Conception, Low, Open Approach (ICD-10-PCS; principal; 2019-10-16 07:45)
DX: O34.211 Maternal care for low transverse scar from previous cesarean delivery (principal); N85.8 Other specified noninflammatory disorders of uterus; Z3A.39 39 weeks gestation of pregnancy; Z37.0 Single live birth; Z30.2 Encounter for sterilization; O99.344 Other mental disorders complicating childbirth; F32.9 Major depressive disorder, single episode, unspecified
CPT/HCPCS: 1961; 36415; 59025; 80307; 81001; 85025; 85027; 86850; 86900; 86901; 87086; 88302; 93005; 93010; 94760; 94799; J0131; J0690; J1885; J2175; J2250; J2270; J2370; J2405; J2590; J2704; J3010; J3490; J7120

== ENCOUNTER → 2020-05-06 | Outpatient (CLI) | payer MEDICAID ==
--- NOTE | 2020-05-06 16:55 | RADIOLOGY REPORT (SQ) ---
EXAM DESCRIPTION: SHOULDER LEFT 2 OR MORE VIEWS IMAGES COMPLETED DATE/TIME: 05/06/2020 3:43 pm REASON FOR STUDY: (M25.512) ACUTE PAIN OF LEFT SHOULDER M25.512 PAIN IN LEFT SHOULDER COMPARISON: Left shoulder films 05/31/2018 NUMBER OF VIEWS: Three views. TECHNIQUE: Internal rotation, external rotation, and Y view images acquired of the left shoulder. LIMITATIONS: None. FINDINGS: MINERALIZATION: Normal. BONES: No acute fracture. No worrisome bone lesions. JOINTS: No glenohumeral dislocation. No widening of the AC joint VISUALIZED LUNGS AND RIBS: No pneumothorax. No rib fracture. SOFT TISSUES: No radiopaque foreign body. OTHER: No other significant finding. IMPRESSION: NEGATIVE STUDY OF THE LEFT SHOULDER. NO RADIOGRAPHIC EVIDENCE OF ACUTE INJURY. TECHNICAL DOCUMENTATION: JOB ID: [id number] [employer]- All Rights Reserved Reading location - IP/workstation name: [email or web address]
== END ==
LOC: OD 15:11
PROVIDERS: ATTEND Nurse Practitioner Family
DX: M25.512 Pain in left shoulder (principal)